=== PATIENT | male | born 1980 | race Caucasian/White ===

== ENCOUNTER 2018-12-04 13:54 | Emergency (ER) | payer MEDICAID ==
[~2018-12-04] VITALS: Ht 167.6 cm; Wt 81.6 kg
[2018-12-04 13:58] VITALS: Ht 167.6 cm; Wt 81.6 kg
[2018-12-04 16:39] VITALS: BP 135/87
== END 2018-12-04 16:39 | disposition home or self-care (01) ==
LOC: ED 13:54
DX: N43.3 Hydrocele, unspecified (principal); F17.210 Nicotine dependence, cigarettes, uncomplicated; R11.10 Vomiting, unspecified